=== PATIENT | female | born 1955 | race African-American/Black ===

== ENCOUNTER 2019-11-16 12:12 | Inpatient (IN) | payer MEDICAID, OTHER ==
[~2019-11-16] VITALS: Ht 165.1 cm; Wt 55.5 kg
[2019-11-16] MEDS ORDERED: GABAPENTIN (12:21)
[2019-11-16] MEDS ORDERED: XARELTO (12:21)
[2019-11-16] MEDS ORDERED: ACETAMINOPHEN 325MG TABLET PO STA (14:31)
[2019-11-16] MEDS ORDERED: CEFTRIAXONE 1 G PREMIX 50 ML IV ONE (14:45)
[2019-11-16] MEDS ORDERED: SODIUM CHLORIDE 0.9% 1000ML BAG (SEPSIS BOLUS) IV ONE (14:45)
[2019-11-16 14:58] LABS: CHLORIDE 99 mEq/L (98-107)
[2019-11-16 15:08] LABS: CLARITY URINE CLEAR (CLEAR); COLOR URINE YELLOW (YELLOW); KETONES URINE NEGATIVE (NEGATIVE); LEUKOCYTE ESTERASE URINE NEGATIVE (NEGATIVE); NITRITE URINE NEGATIVE (NEGATIVE); OCCULT BLOOD URINE NEGATIVE (NEGATIVE); PROTEIN URINE 1+ (NEGATIVE); SPECIFIC GRAVITY URINE 1.013 (1.005-1.030); UROBILINOGEN URINE 0.2 E.U./dL (0.2-1.0)
[2019-11-16 16:20] LABS: BASOPHILS % 0.5 % (0.0-2.0); EOSINOPHILS % 0.3 % (0.0-5.0); LYMPHOCYTES % 29.9 % (20.0-50.0); MEAN CORPUSCULAR HEMOGLOBIN 30.2 pg (28.0-32.0); MEAN CORPUSCULAR VOLUME 86.4 fL (81.0-99.0); MEAN PLATELET VOLUME 7.3 fl (7.4-10.4); MONOCYTES % 9.4 % (2.0-8.0); NEUTROPHILS % 59.9 % (40.0-76.0); RED BLOOD CELL COUNT 1.58 mill/uL (4.2-5.4); RED CELL DISTRIBUTION WIDTH 18.2 % (11.6-14.6)
[2019-11-16 16:34] LABS: HEMOGLOBIN. 4.8 g/dL (12.0-16.0)
[2019-11-16 16:35] LABS: HEMATOCRIT. 13.7 % (36.0-48.0)
[2019-11-16 16:36] LABS: PLATELET 23 x1000/uL (130-400)
[2019-11-16] MEDS ORDERED: MAGNESIUM/ALUMINUM HYDROXIDE/SIMETHICONE 30ML UDC PO PRN (17:45)
[2019-11-16] MEDS ORDERED: ACETAMINOPHEN 325MG TABLET PO PRN (17:45)
[2019-11-16] MEDS ORDERED: GUAIFENESIN 200MG/10ML SUGAR FREE UDC PO PRN (17:45)
[2019-11-16] MEDS ORDERED: DOCUSATE SODIUM 100MG CAPSULE PO PRN (17:45)
[2019-11-16] MEDS ORDERED: HYDROCODONE/ACETAMINOPHEN 5/325MG TABLET PO PRN (17:45)
[2019-11-16] MEDS ORDERED: CLONIDINE 0.1MG TABLET PO PRN (17:45)
[2019-11-16 17:48] LABS: PLATELET ESTIMATE MARKEDLY DECREASED
[2019-11-16 18:00] LABS: TOTAL IRON BINDING CAPACITY 160 ug/dL (250-450)
[2019-11-16] MEDS ORDERED: PIPERACILLIN/TAZ 3.375G PREMIX 50 ML IV SCH (18:00)
[2019-11-16] MEDS: SODIUM CHLORIDE 0.45% 1,000 ML IV SCH (20:00)
[2019-11-16] MEDS: ONDANSETRON HCL 4MG/2ML INJ IV PRN (20:00)
[2019-11-17] VITALS (17 sets, daily range): BP systolic 99–175; BP diastolic 48–89
[2019-11-17] MEDS: PIPERACILLIN/TAZOBACTAM 3.375 G in DEXT 5% WATER 100 ML IV SCH ×2 (06:00→21:16)
[2019-11-17 06:32] LABS: BASOPHILS % 0.9 % (0.0-2.0); EOSINOPHILS % 0.5 % (0.0-5.0); HEMATOCRIT. 25.9 % (36.0-48.0); LYMPHOCYTES % 24.1 % (20.0-50.0); MEAN CORPUSCULAR VOLUME 86.6 fL (81.0-99.0); MEAN PLATELET VOLUME 7.8 fl (7.4-10.4); MONOCYTES % 9.5 % (2.0-8.0); RED BLOOD CELL COUNT 2.99 mill/uL (4.2-5.4); RED CELL DISTRIBUTION WIDTH 16.7 % (11.6-14.6)
[2019-11-17 06:58] LABS: CHLORIDE 108 mEq/L (98-107)
[2019-11-17 07:22] LABS: LDL CHOLESTEROL 117 mg/dL (5-100)
[2019-11-17 07:23] LABS: HDL CHOLESTEROL 38 mg/dL (40-59)
[2019-11-17] MEDS: FERROUS SULFATE 325MG TABLET PO SCH (09:32)
[2019-11-17] MEDS ORDERED: RIVA20TA MT (11:20)
[2019-11-17] MEDS ORDERED: OLAN5TAB3 MT (11:21)
[2019-11-17 13:36] LABS: TOTAL IRON BINDING CAPACITY 151 ug/dL (250-450)
[2019-11-17 16:22] LABS: PROTHROMBIN TIME 10.7 sec (9.6-11.0)
[2019-11-17 20:38] LABS: HEMATOCRIT 28.1 % (36.0-48.0); HEMOGLOBIN 9.4 g/dL (12.0-16.0)
[2019-11-17 20:57] LABS: FOLIC ACID (FOLATE) SERUM 6.8 ng/mL (>5.38)
[2019-11-17] MEDS ORDERED: ATORVASTATIN CALCIUM 40MG TABLET PO SCH (21:00)
[2019-11-17] MEDS: SODIUM CHLORIDE 0.45% 1,000 ML IV SCH (21:33)
[2019-11-18] VITALS (10 sets, daily range): BP systolic 121–151; BP diastolic 71–79
[2019-11-18 06:20] LABS: BASOPHILS % 0.7 % (0.0-2.0); EOSINOPHILS % 1.3 % (0.0-5.0); HEMATOCRIT. 25.8 % (36.0-48.0); HEMOGLOBIN. 8.9 g/dL (12.0-16.0); MEAN CORPUSCULAR VOLUME 86.9 fL (81.0-99.0); MEAN PLATELET VOLUME 7.4 fl (7.4-10.4); MONOCYTES % 11.5 % (2.0-8.0); NEUTROPHILS % 51.5 % (40.0-76.0); RED BLOOD CELL COUNT 2.97 mill/uL (4.2-5.4); RED CELL DISTRIBUTION WIDTH 17.3 % (11.6-14.6)
[2019-11-18] MEDS: PIPERACILLIN/TAZOBACTAM 3.375 G in DEXT 5% WATER 100 ML IV SCH (06:22)
[2019-11-18 06:24] LABS: PLATELET 42 x1000/uL (130-400)
[2019-11-18 06:31] LABS: CHLORIDE 107 mEq/L (98-107)
[2019-11-18] MEDS ORDERED: OLANZAPINE 5MG TABLET PO SCH (09:00)
[2019-11-18] MEDS: FERROUS SULFATE 325MG TABLET PO SCH (09:47)
[2019-11-18] MEDS: SODIUM CHLORIDE 0.45% 1,000 ML IV SCH (09:49)
[2019-11-18] MEDS ORDERED: SORBITOL 70% SOLN 30ML PO NR (11:00)
[2019-11-18] MEDS: ONDANSETRON HCL 4MG/2ML INJ IV PRN (11:09)
[2019-11-18] MEDS ORDERED: HYDRALAZINE 20MG/ML VIAL IV PRN (11:15)
[2019-11-18 12:57] LABS: PLATELET 30 x1000/uL (130-400)
== END 2019-11-18 17:04 | disposition home health service (06) | DRG 45 ==
LOC: ER 12:24 → 3WST 16:43 → ENRESERV 21:03
PROVIDERS: ADMIT Hospitalist; ATTEND Hospitalist
PROC: 30233N1 Transfusion of Nonautologous Red Blood Cells into Peripheral Vein, Percutaneous Approach (ICD-10-PCS; 2019-11-16)
PROC: 4A00X4Z Measurement of Central Nervous Electrical Activity, External Approach (ICD-10-PCS; principal; 2019-11-18)
DX: I63.9 Cerebral infarction, unspecified (principal); D61.818 Other pancytopenia; G40.909 Epilepsy, unspecified, not intractable, without status epilepticus; E78.5 Hyperlipidemia, unspecified; I10 Essential (primary) hypertension; G93.89 Other specified disorders of brain; E78.00 Pure hypercholesterolemia, unspecified; D64.9 Anemia, unspecified; C67.9 Malignant neoplasm of bladder, unspecified; G81.94 Hemiplegia, unspecified affecting left nondominant side; Z85.51 Personal history of malignant neoplasm of bladder
CPT/HCPCS: 36415; 70551; 71045; 80053; 80061; 81003; 82607; 82728; 82746; 83540; 83550; 83605; 84484; 85014; 85018; 85025; 85044; 86850; 86900; 86920; 93005; 93880; 93970; 95816; 97162; 97166; 97530; 97535; 99285; J0360; J0696; J2405; J2543; J7030; J7060; P9016